=== PATIENT | female | born 1985 | race Two or more races ===

== ENCOUNTER → 2024-03-03 | Outpatient (CLI) | payer BC, MEDICAID, SELFPAY ==
--- NOTE | 2024-03-03 08:45 | XR_ITS ---
Examination: Screening digital mammography, bilateral Computer aided detection 3-D breast Tomosynthesis, bilateral Date and time of exam: March 03, 2024 0819 hours No priors Indication: Screening Technique: Nonmagnified MLO, CC views of the breasts to been obtained, reconstructed from 3-D Tomosynthesis images. R2 computer aided detection program utilized for evaluation of suspicious masses and/or abnormal calcifications. 3-D Tomosynthesis images obtained. Findings: Scattered areas of fibroglandular density Benign calcifications No suspicious masses Impression: BI-RADS category II: Benign Findings. Recommend 1 year follow-up mammogram.
== END | disposition home or self-care (01) ==
LOC: CDIM 08:10
PROVIDERS: Referring Provider Obstetrics & Gynecology; Visit Provider Obstetrics & Gynecology
DX: Z12.31 Encounter for screening mammogram for malignant neoplasm of breast (principal); R92.323 Mammographic fibroglandular density, bilateral breasts; R92.1 Mammographic calcification found on diagnostic imaging of breast
CPT/HCPCS: 77063; 77067

== ENCOUNTER 2024-03-09 16:10 | Emergency (ER) | payer BC, MEDICAID, SELFPAY ==
[2024-03-09 16:11] VITALS: BMI 42.5
[2024-03-09 16:45] VITALS: BP 159/98; PULSE 96; RESP 18; TEMP 37.1; O2SAT 95
--- NOTE | 2024-03-09 17:08 | EDNOTE_ITS ---
ED Headache RME/HPI General Chief Complaint: Headache Stated Complaint: Headache, HTN Time Seen by Provider: 03/09/24 16:46 Arrival date/time: 03/09/24 16:10 39-year-old female that comes in with complaints of high blood pressure and headache. Patient states that she takes atenolol 25 mg once a day but her [place] doctor recently told her to take twice a day. Patient took medication prior to arrival and blood pressure is better. Patient still complaining of a headache. Patient denies any any other symptoms. Related Data Previous Rx's ?Medication ?Instructions ?Recorded tramadol 37.5 mg-acetaminophen 325 1 tab PO TID PRN pa in #15 tabs 11/30/21 mg tablet (Ultracet) dicyclomine 20 mg tablet 20 mg PO BID #20 tabs metoclopramide HCl 10 mg tablet 10 mg PO Q6H PRN nause a and 06/14/22 (Reglan) vomiting #20 tabs pantoprazole 40 mg tablet,delayed 40 mg PO QDAY #30 ta bs 06/14/22 release (Protonix) ibuprofen 800 mg tablet 800 mg PO Q6H PRN pain #10 t abs 03/09/24 Allergies Allergy/AdvReac Type Severity Reaction Status Date / Time ondansetron AdvReac Severe HEADACHE, Verified 11/05/23 09:14 rash Review of Systems Review of Systems Systems Reviewed: All systems reviewed, normal except as documented Past Medical History Past Medical History NEUROLOGIC: Negative Neurological Disorders or Seizures CARDIAC: Positive Cardiac Disorders and Hypertension (TAKES MED); Negative Congestive Heart Failure, Edema, Cellulitis or Varicose Veins RESPIRATORY: Negative Chronic Obstructive Pulmonary Disease (COPD) or Asthma GASTROINTESTINAL: Positive Gastrointestinal Disorders, Gall Bladder Disease (FOR THIS PROC) and Obesity; Negative Hepatitis GENITOURINARY: Negative Genitourinary Disorders or Renal Disease REPRODUCTIVE: Positive Previous Pregnancies (X4) MUSCULOSKELETAL: Negative Musculoskeletal Disorders ENDOCRINE: Negative Endocrine Disorders, Diabetes Mellitus Type 1 or Diabetes Mellitus Type 2 HEMATOLOGIC: Positive Anemia; Negative Blood Disorders or Sickle Cell Disease OTHER HISTORY: Positive Chicken Pox; Negative Hospitalization, Autoimmune Disease, Shingles, Falls, Blood Transfusions, Blood Transfusion Reaction, Anesthesia Reactions, Chemotherapy, Radiation Therapy, MRSA, Measles, Mumps or Cancer Family History FAMILY HISTORY: Positive Family Cardiac Disorders (MOTHER (CVA),FATHER,MOTHER(HTN)) and Family Surgery (MOTHER,FATHER,BROTHER,SISTER); Negative Family Psychiatric Problems, Family Respiratory Disorders, Family Gastrointestinal Problems, Family Cancer or Family Anesthesia Reaction Surgical History SURGICAL: Positive Section (2016); Negative Pacemaker Social History SMOKING STATUS: Never smoker ED Exam General General appearance: Present alert and in no apparent distress Head Head exam: Present atraumatic Eye Eye exam: Present normal appearance, PERRL and EOMI ENT ENT exam: Present normal exam, normal oropharynx and mucous membranes moist Neck Neck exam: Present normal inspection, full ROM and trachea midline Chest Chest inspection: Present normal inspection and symmetric chest wall rise Respiratory Respiratory exam: Present normal lung sounds bilaterally Cardiovascular Cardiovascular exam: Present regular rate, normal rhythm and normal heart sounds Abdominal Exam Abdominal exam: Present soft Extremities Exam Extremities exam: Present normal inspection and full ROM Back Exam Back exam: Present normal inspection and full ROM Neurological Exam Neurological exam: Present alert, oriented X3 and CN II-XII intact Psychiatric Psychiatric exam: Present normal affect and normal mood Skin Skin exam: Present warm, dry, intact and normal color Course Quality Measures none Orders Category Date Time Status Acetaminophen Tab [Tylenol ES Tab] Med 03/09/24 17:07 Discontinued 1,000 mg PO X1 ONE DiphenhydrAMINE INJ [Benadryl Inj] Med 03/09/24 17:07 Discontinued 25 mg IM X1 ONE Ketorolac Inj [Toradol Inj] Med 03/09/24 17:07 Discontinued 60 mg IM X1 ONE Metoclopramide Inj [Reglan Inj] Med 03/09/24 17:07 Discontinued 10 mg IM X1 ONE Vital Signs Vital signs: Vital Signs Temperature 98.8 F 03/09/24 16:45 Pulse Rate 96 03/09/24 16:45 Respiratory Rate 18 03/09/24 16:45 Blood Pressure 159/98 H 03/09/24 16:45 Pulse Oximetry (%) 95 03/09/24 16:45 Oxygen Delivery Method Room Air 03/09/24 16:45 Headache MDM Narrative MDM Narrative:: Pt took an extra dose of medication and pt blood pressure better. Pt given tylenol, toradol, benadryl, and reglan. Headache improved. Pt told to follow up wiht primary provider in 1-2 days. Come back to ED if symptoms change or worsen. Patient data External records reviewed:: [facility] previous records Clinical information provided by:: patient Social determinants that could affect healthcare access:: none Patient has the following chronic illnesses:: htn How is presenting disease/condition affected by chronic disease/condition?: exacerbated by Evaluation data The following diagnostics were reviewed and interpreted by me:: other (specify) (none ) Lab and/or radiology exams considered but not ordered:: none Interpretation Summary: see note Medications / Prescriptions Medications or Prescriptions considered but not ordered:: none Medication administrations:: Medication Administration History Discontinued Medications Acetaminophen (Acetaminophen 500 Mg Tablet) 1,000 mg PO X1 ONE Stop: 03/09/24 17:08 Last Admin: 03/09/24 17:49 Dose: 1,000 mg Documented By: Diphenhydramine HCl (Diphenhydramine Inj 50 Mg/Ml Vial) 25 mg IM X1 ONE Stop: 03/09/24 17:08 Last Admin: 03/09/24 17:49 Dose: 25 mg Documented By: Ketorolac Tromethamine (Ketorolac Inj 60 Mg/2 Ml Vial) 60 mg IM X1 ONE Stop: 03/09/24 17:08 Last Admin: 03/09/24 17:49 Dose: 60 mg Documented By: Metoclopramide HCl (Metoclopramide Inj 5 Mg/Ml Vial 2 Ml) 10 mg IM X1 ONE; Protocol Stop: 03/09/24 17:08 Last Admin: 03/09/24 17:48 Dose: 10 mg Documented By: see mar Consultations Consultation(s) initiated? (list below): No Diagnosis Differential diagnosis headache: migraine, tension headache, subarachnoid hemorrhage and headache Most likely diagnosis given after review of the tests above:: tension headache Admission Indicated Admission indicated?: not indicated Admission Request Was there a request for admission?: No Disposition Plan Disposition Plan: Discharge Discharge Attestation Discharge Attestation: The patient and all family members were given an opportunity to ask questions and understood the discharge instructions. Discharge instructions specifically effects, indications for sooner follow up or return to the emergency department, and the expected course of current diagnosis. Patient condition: Stable Discharge Plan Plan Patient Disposition: HOME (Self Care) Patient condition on transfer: Stable Prescriptions/Referrals Prescriptions/Med Rec: New ibuprofen 800 mg tablet 800 mg PO Q6H PRN (Reason: pain) Qty: 10 0RF No Action tramadol-acetaminophen [Ultracet] 37.5-325 mg tablet 1 tab PO TID PRN (Reason: pain) Qty: 15 0RF pantoprazole [Protonix] 40 mg tablet,delayed release (DR/EC) 40 mg PO QDAY Qty: 30 0RF dicyclomine 20 mg tablet 20 mg PO BID Qty: 20 0RF metoclopramide HCl [Reglan] 10 mg tablet 10 mg PO Q6H PRN (Reason: nausea and vomiting) Qty: 20 0RF Problem List Clinical Impression: Headache Patient/Caregiver Discharge Instructions Discharge Activity: activity as tolerated Education Materials: Self-Care for Headaches Additional Instructions: Follow up with primary provider in 1-2 days. Come back to ED if symptoms change or worsen Print Language: Bengali Stand Alone Forms: Martine Award Info., Patient Portal Info Letter PA/ORDER PROCESSING SPECIALIST Supervising Physician PA/ORDER PROCESSING SPECIALIST Supervising Physician: anh
[2024-03-09] MEDS: METOCLOPRAMIDE INJ 5 MG/ML VIAL 2 ML 10 MG IM (17:48)
[2024-03-09] MEDS: DiphenhydrAMINE INJ 50 MG/ML VIAL 25 MG IM (17:49)
[2024-03-09] MEDS: KETOROLAC INJ 60 MG/2 ML VIAL IM (17:49)
[2024-03-09] MEDS: ACETAMINOPHEN 500 MG TABLET 1000 MG PO (17:49)
== END 2024-03-09 20:34 | disposition home or self-care (01) ==
PROVIDERS: Emergency Provider Emergency Medicine
DX: R51.9 Headache, unspecified (principal)
CPT/HCPCS: 96372; 99283; J1200; J1885; J2765; A9270

== ENCOUNTER → 2024-04-08 | Outpatient (CLI) | payer BC, MEDICAID, SELFPAY ==
[2024-04-07 12:31] LABS: HCG Qualitative,Urine Negative
--- NOTE | 2024-04-08 12:00 | XR_ITS ---
Examination: CT abdomen with intravenous contrast contrast. Coronal 2-D reconstructions. Sagittal 2-D reconstructions. 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 One or more of the following dose reduction techniques were used; automated exposure control, adjustment of the mA and/or KV according to patient size, use of iterative reconstruction technique. 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
== END | disposition home or self-care (01) ==
LOC: CCTX 11:34
PROVIDERS: PCP Family Medicine; Referring Provider Family Medicine; Visit Provider Family Medicine
DX: K76.0 Fatty (change of) liver, not elsewhere classified (principal); E27.8 Other specified disorders of adrenal gland; Z32.00 Encounter for pregnancy test, result unknown
CPT/HCPCS: 74160; 81025; A4649; Q9967

== ENCOUNTER → 2024-04-30 | Outpatient (CLI) | payer BC, MEDICAID, SELFPAY ==
[2024-04-29 09:37] LABS: Basophils % (Auto) 0 % (0-2.5); Eosinophils # (Auto) 0.1 Thou/mm3 (0.0-0.5); Eosinophils % (Auto) 1 % (0-10); Hematocrit 34.1 % (36.0-46.0); Immature Granulocytes % (Auto) 0 % (0-0); Immature Granulocytes Auto 0.01 Thou/mm3 (0.00-0.00); Lymphocytes # (Auto) 1.3 Thou/mm3 (1.0-4.8); Lymphocytes % (Auto) 24 % (10-50); Mean Corpuscular HGB Conc 32.3 g/dl (31.0-37.0); Mean Corpuscular Hemoglobin 22.7 pg (25.0-35.0); Mean Corpuscular Volume 70 fL (80-100); Monocytes # (Auto) 0.6 Thou/mm3 (0.0-0.8); Monocytes % (Auto) 10 % (0-12); Neutrophils # (Auto) 3.5 Thou/mm3 (1.8-7.7); Neutrophils % (Auto) 64 % (37-80); Nucleated Red Blood Cell % 0 /100 WBC (0); Platelet Count 183 Thou/mm3 (140-440); RDW Standard Deviation 42.1 fL (36.4-46.3); Red Blood Count 4.85 Miln/mm3 (4.00-5.20); White Blood Count 5.5 Thou/mm3 (3.6-11.0)
[2024-04-29 09:50] LABS: Partial Thromboplastin Time 23.9 Seconds (22.0-36.0); Prothrombin Time 10.7 Seconds (9.0-12.2)
[2024-04-29 09:51] LABS: HCG,Qualitative Serum Negative
[2024-04-29 16:08] VITALS: BMI 40.6
[2024-04-30 07:54] VITALS: BP 160/107; PULSE 88; RESP 16; TEMP 36.7; O2SAT 98
[2024-04-30 09:35] VITALS: BP 153/87; PULSE 80; RESP 23; O2SAT 100
[2024-04-30 09:40] VITALS: BP 170/103; PULSE 94; RESP 28; O2SAT 100
[2024-04-30 09:50] VITALS: BP 158/81; PULSE 81; RESP 24; O2SAT 100
[2024-04-30 09:59] VITALS: BP 149/95; PULSE 79; RESP 24; TEMP 36.9; O2SAT 100
--- NOTE | 2024-04-30 10:17 | PC.NURSE ---
[address] Dr. Booker revie CT color corrector images and decided to cancel procedure, MD talk to patient and explain reason for cancelation. Recommended to follow up and monitor mass. 1011 patient dressed in own cloth, IV taken out, patient discharged home with all belongings since she did not received any medications.
== END | disposition home or self-care (01) ==
LOC: SIRX 07:35
PROVIDERS: Radiology Diagnostic Radiology; PCP Physician Assistant Medical; Referring Provider Physician Assistant Medical; Visit Provider Physician Assistant Medical
DX: E27.8 Other specified disorders of adrenal gland (principal); Z01.812 Encounter for preprocedural laboratory examination; Z53.8 Procedure and treatment not carried out for other reasons
CPT/HCPCS: 36415; 84703; 85025; 85610; 85730

== ENCOUNTER → 2024-05-14 | Outpatient (CLI) | payer BC, MEDICAID, SELFPAY ==
[2024-05-13 10:26] LABS: Basophils % (Auto) 0 % (0-2.5); Eosinophils # (Auto) 0.1 Thou/mm3 (0.0-0.5); Eosinophils % (Auto) 1 % (0-10); Hematocrit 33.8 % (36.0-46.0); Hemoglobin 11.1 g/dL (12.0-16.0); Immature Granulocytes % (Auto) 0 % (0-0); Immature Granulocytes Auto 0.01 Thou/mm3 (0.00-0.00); Lymphocytes % (Auto) 18 % (10-50); Mean Corpuscular HGB Conc 32.8 g/dl (31.0-37.0); Mean Corpuscular Hemoglobin 23.2 pg (25.0-35.0); Mean Corpuscular Volume 71 fL (80-100); Monocytes # (Auto) 0.5 Thou/mm3 (0.0-0.8); Monocytes % (Auto) 9 % (0-12); Neutrophils # (Auto) 4.1 Thou/mm3 (1.8-7.7); Neutrophils % (Auto) 71 % (37-80); Nucleated Red Blood Cell % 0 /100 WBC (0); Platelet Count 202 Thou/mm3 (140-440); RDW Standard Deviation 41.7 fL (36.4-46.3); Red Blood Count 4.78 Miln/mm3 (4.00-5.20); White Blood Count 5.7 Thou/mm3 (3.6-11.0)
[2024-05-13 10:31] LABS: Partial Thromboplastin Time 23.9 Seconds (22.0-36.0); Prothrombin Time 10.6 Seconds (9.0-12.2)
[2024-05-13 10:38] LABS: HCG,Qualitative Serum Negative
--- NOTE | 2024-05-14 09:30 | XR_ITS ---
Examination: Ultrasound-guided fine needle percutaneous aspiration thyroid nodule, right thyroid nodule. Thyroid sonography, limited Exam date and time: May 14, 2024 0946 hours INDICATIONS: Recent diagnosis right thyroid nodule on outside ultrasound examination. Technique: A timeout was completed verifying correct patient, procedure, site, positioning and special equipment if applicable. The patient was placed in supine position for the thyroid fine needle percutaneous aspiration The patient's right neck was prepped and draped in sterile fashion. Maximum barrier sterile technique, hand hygiene, ultrasound sterile technique. 1% lidocaine was used to anesthetize the skin and subcutaneous tissues to the patient's right thyroid nodule. Multiple fine needle aspirations were performed and multiple thyroid specimens placed in preservative according to the irm protocol. Specimens appears satisfactory. The attending radiologist was present for the entire procedure. Estimated blood loss 3 cc. The patient tolerated the procedure well and there were no complications. Impression: Successful ultrasound-guided fine-needle percutaneous aspiration thyroid nodule, right thyroid nodule.
--- NOTE | 2024-05-14 09:30 | XR_ITS ---
Examination: Ultrasound-guided fine needle percutaneous aspiration thyroid nodule, left thyroid nodule. Thyroid sonography, limited Exam date and time: May 14, 2024 0953 hours INDICATIONS: Thyroid sonogram today vascular left thyroid nodule. Technique: A timeout was completed verifying correct patient, procedure, site, positioning and special equipment if applicable. The patient was placed in supine position for the thyroid fine needle percutaneous aspiration The patient's left neck was prepped and draped in sterile fashion. Maximum barrier sterile technique, hand hygiene, ultrasound sterile technique. 1% lidocaine was used to anesthetize the skin and subcutaneous tissues to the patient's right thyroid nodule. Multiple fine needle aspirations were performed and multiple thyroid specimens placed in preservative according to the irm protocol. Specimens appears satisfactory. The attending radiologist was present for the entire procedure. Estimated blood loss 3 cc. The patient tolerated the procedure well and there were no complications. Impression: Successful ultrasound-guided fine-needle percutaneous aspiration thyroid nodule, left thyroid nodule.
== END | disposition home or self-care (01) ==
LOC: SDIM 08:59 → SIRX 09:41
PROVIDERS: Radiology Diagnostic Radiology; PCP Physician Assistant Medical; Referring Provider Physician Assistant Medical; Visit Provider Physician Assistant Medical
DX: E04.1 Nontoxic single thyroid nodule (principal); Z01.812 Encounter for preprocedural laboratory examination
CPT/HCPCS: 10005; 36415; 76536; 84703; 85025; 85610; 85730

== ENCOUNTER → 2025-01-02 | Outpatient (CLI) | payer BC, MEDICAID, SELFPAY ==
[2025-01-02 08:25] LABS: HCG Qualitative,Urine Negative
--- NOTE | 2025-01-02 09:00 | XR_ITS ---
Examination: CT abdomen, without intravenous contrast. CT pelvis, without intravenous contrast. CT abdomen, with intravenous contrast. CT pelvis, with intravenous contrast. 2-D sagittal coronal reconstructions. Date and time of exam: January 02, 2025, 0902 hours, comparison April 08, 2024 INDICATIONS: History pelvic mass several years, soft tissue mass anterior to the abdominal aorta [address] study April 08, 2024 CTDI: vol (mGy) 48.6 DLP: (mGycm) 2203 Technique: Multiple 3.0 axial images of the abdomen and pelvis without intravenous contrast, 3.0 mm slice thickness. Multiple 3.0 postcontrast images abdomen and pelvis also obtained, post intravenous injection 60 cc [id number] 2-D sagittal and coronal reconstructions. Low dose protocols were performed. One or more of the following dose reduction techniques were used; automated exposure control, adjustment of the mA and/or KV according to patient size, use of iterative reconstruction technique. Findings: No visualized liver or splenic lesions Absent gallbladder No pancreatic mass Stable 10 mm left adrenal nodule Mild renal scar formation Aorta normal size No bowel obstruction No pericecal inflammatory change Stable 39 mm soft tissue mass anterior to the abdominal aorta image 117 No pelvic mass Bladder intact Osseous structures intact IMPRESSION: Stable 39 mm soft tissue mass anterior to the abdominal aorta
== END | disposition home or self-care (01) ==
PROVIDERS: PCP Physician Assistant Medical; Referring Provider Physician Assistant Medical; Visit Provider Physician Assistant Medical
DX: R19.09 Other intra-abdominal and pelvic swelling, mass and lump (principal); Z32.00 Encounter for pregnancy test, result unknown
CPT/HCPCS: 74178; 81025; A4649; Q9967